=== PATIENT | male | born 1945 | race Caucasian/White ===

== ENCOUNTER → 2016-04-27 | Outpatient (CLI) | payer OTHER ==
[~2016-04-27] MED LIST: CIPRO500 MG PO; FLOMAX0.4 MG PO; TAMSULOSIN HCL0.4 MG PO
== END | disposition home or self-care (01) ==
LOC: CDC 10:30
DX: Z01.810 Encounter for preprocedural cardiovascular examination (principal); C44.119 Basal cell carcinoma of skin of left eyelid, including canthus
CPT/HCPCS: 93000